=== PATIENT | male | born 1970 | race Caucasian/White ===

== ENCOUNTER 2023-09-24 19:43 | Outpatient (OUT) | payer OTHER, SELFPAY | END 2023-09-24 19:44 | disposition home or self-care (01) | LOC: SLEEP 19:44 | PROVIDERS: PCP Psychiatry & Neurology Neurology; Visit Provider Psychiatry & Neurology Neurology | DX: G47.33 Obstructive sleep apnea (adult) (pediatric) (principal); F51.01 Primary insomnia | CPT/HCPCS: 95811 ==

== ENCOUNTER 2024-05-18 08:52 | Outpatient (OUT) | payer OTHER, SELFPAY | END 2024-05-18 08:53 | disposition home or self-care (01) | LOC: SLEEP 08:52 | PROVIDERS: PCP Psychiatry & Neurology Neurology; Visit Provider Psychiatry & Neurology Neurology | DX: G47.33 Obstructive sleep apnea (adult) (pediatric) (principal); G47.26 Circadian rhythm sleep disorder, shift work type; R09.02 Hypoxemia | CPT/HCPCS: 95805 ==